=== PATIENT | female | born 1990 | race Two or more races ===

== ENCOUNTER 2022-01-15 15:26 | Emergency (ER) | payer MEDICAID ==
[~2022-01-15] VITALS: Ht 152.4 cm; Wt 78.5 kg
[2022-01-15 16:39] VITALS: BP 143/92
[2022-01-15] MEDS ORDERED: IBUP600T27 PO (16:48)
== END 2022-01-15 17:11 | disposition home or self-care (01) ==
LOC: ER 15:26
DX: S00.33XA Contusion of nose, initial encounter (principal); W20.8XXA Other cause of strike by thrown, projected or falling object, initial encounter; Y93.89 Activity, other specified; Y92.89 Other specified places as the place of occurrence of the external cause; Y99.8 Other external cause status
CPT/HCPCS: 70160

== ENCOUNTER 2022-03-30 19:53 | Emergency (ER) | payer MEDICAID ==
[~2022-03-30] VITALS: Ht 152.4 cm; Wt 72.6 kg
[~2022-03-30 19:53] MED LIST: IBUP600T27 PO
[2022-03-30 20:18] VITALS: BP 150/82
[2022-03-30 20:26] LABS: Basophils # (auto) 0.1 10 ^3/uL (0-0.2); Basophils % (auto) 0.9 % (0.0-2.0); Eosinophils # (auto) 0.2 10 ^3/uL (0-0.8); Eosinophils % (auto) 2.9 % (0.0-7.0); Hematocrit 38.3 % (36.0-46.0); Lymphocytes # (auto) 2.4 10 ^3/uL (0.4-5.4); Lymphocytes % (auto) 29.3 % (10.0-50.0); Mean Corpuscular Hgb Conc. 34.1 g/dL (32.0-36.0); Mean Corpuscular Volume 88.2 fL (80.0-100.0); Monocytes # (auto) 0.6 10 ^3/uL (0-1.3); Monocytes % (auto) 7.1 % (0.0-12.0); Neutrophils # (auto) 4.9 10 ^3/uL (1.6-8.6); Neutrophils % (auto) 59.8 % (37.0-80.0); Red Blood Cells 4.34 10^6/uL (4.0-5.20); Red Cell Distribution Width 12.7 % (11.8-14.3); White Blood Cell 8.1 10^3/uL (4.4-10.8)
[2022-03-30 20:43] LABS: Albumin 3.6 g/dL (3.4-5.0); BUN/Creatinine Ratio 30.3; Calcium 8.8 mg/dL (8.5-10.1); Potassium 3.9 mmol/L (3.5-5.1)
[2022-03-30 20:46] LABS: Bilirubin, Total 0.2 mg/dL (0.2-1.0); Total Protein 7.2 g/dL (6.4-8.2)
== END 2022-03-31 | disposition left against medical advice (07) ==
LOC: ER 20:05
DX: I16.0 Hypertensive urgency (principal); Z79.1 Long term (current) use of non-steroidal anti-inflammatories (NSAID)
CPT/HCPCS: 36415; 71045; 80053; 83880; 84484; 85025; 93005